=== PATIENT | female | born 1990 | race Caucasian/White ===

== ENCOUNTER 2017-01-13 22:36 | Emergency (ER) | payer SELFPAY ==
[~2017-01-13] VITALS: Ht 167.6 cm; Wt 86.0 kg
[2017-01-14] MEDS ORDERED: SODIUM CHLORIDE 0.9% 1,000 ML IV ONE (00:11)
[2017-01-14] MEDS ORDERED: ONDANSETRON HCL 4MG/2ML VIAL IV STA (00:11)
[2017-01-14] MEDS ORDERED: FAMOTIDINE 20MG/2ML VIAL IV STA (00:11)
[2017-01-14 00:35] LABS: DIFFERENTIAL COMMENT 1; HEMATOCRIT. 38.8 % (36.0-48.0); HEMOGLOBIN. 13.8 g/dL (12.0-16.0); MEAN CORPUSCULAR HEMOGLOBIN 30.8 pg (28.0-32.0); MEAN CORPUSCULAR HGB CONC 35.7 g/dL (31.0-37.0); MEAN CORPUSCULAR VOLUME 86.3 fL (81.0-99.0); MEAN PLATELET VOLUME 8.1 fl (7.4-10.4); PLATELET 175 x1000/uL (130-400); RED BLOOD CELL COUNT 4.49 mill/uL (4.2-5.4); RED CELL DISTRIBUTION WIDTH 12.7 % (11.6-14.6); WHITE BLOOD COUNT 9.2 x1000/uL (4.5-11.0)
[2017-01-14 00:40] LABS: PROTHROMBIN TIME 10.9 sec
[2017-01-14 00:42] LABS: ALANINE AMINOTRANSFERASE 24 IU/L (13-61); ALBUMIN 3.9 g/dL (3.4-5.0); ANION GAP 13; CALCIUM 8.3 mg/dL (8.5-10.1); CARBON DIOXIDE 27 mEq/L (21-32); CHLORIDE 103 mEq/L (98-107); INDEX HEMOLYSI 1 (1-3); INDEX ICTERIC 1 (1-4); INDEX LIPEMIC 1 (1-3); LIPASE 108 IU/L (73-393); UREA NITROGEN BLOOD 20 mg/dL (7-21); eGFR > 60 mL/min (>60)
[2017-01-14 01:05] LABS: HCG SCREEN NEGATIVE
[2017-01-14 01:14] LABS: CLARITY URINE CLEAR (CLEAR); COLOR URINE YELLOW (YELLOW); GLUCOSE URINE NEGATIVE (NEGATIVE); KETONES URINE 1+ (NEGATIVE); LEUKOCYTE ESTERASE URINE NEGATIVE (NEGATIVE); NITRITE URINE NEGATIVE (NEGATIVE); OCCULT BLOOD URINE NEGATIVE (NEGATIVE); PH URINE 6.5 (4.5-8.0); PROTEIN URINE NEGATIVE (NEGATIVE); SPECIFIC GRAVITY URINE 1.031 (1.005-1.030)
[2017-01-14 02:23] LABS: PLATELET ESTIMATE NORMAL
[2017-01-14 02:52] VITALS: BP 131/84
== END 2017-01-14 02:54 | disposition home or self-care (01) ==
LOC: ER 22:59
DX: K29.00 Acute gastritis without bleeding (principal); E86.0 Dehydration; N83.209 Unspecified ovarian cyst, unspecified side
CPT/HCPCS: 36415; 76705; 76830; 76856; 76857; 80053; 81003; 83690; 84703; 85025; 85610; 96361; 96374; 96375; 99285; J2405; J3490; Z7610; J7030